=== PATIENT | male | born 1940 | race Caucasian/White ===

== ENCOUNTER → 2016-08-23 | Outpatient (REF) | payer MEDICARE ==
[2016-08-23 11:15] LABS: ALBUMIN 3.7 GM/DL (3.2-5.2); ALBUMIN/GLOBULIN RATIO 1.37 (1.00-1.93); ALKALINE PHOSPHATASE 80 U/L (45-117); ALT/SGPT 26 U/L (12-78); ANION GAP 4 MEQ/L (8-16); AST/SGOT 14 U/L (15-37); BILIRUBIN,TOTAL 0.7 MG/DL (0.2-1.0); BLOOD UREA NITROGEN 11 MG/DL (7-18); CALCIUM LEVEL 8.8 MG/DL (8.8-10.2); CARBON DIOXIDE LEVEL 36 MEQ/L (21-32); CHLORIDE LEVEL 101 MEQ/L (98-107); CHOLESTEROL LEVEL 237 MG/DL (<200); GLOMERULAR FILTRATION RATE > 60.0 (>42); GLUCOSE, FASTING 103 MG/DL (83-110); POTASSIUM SERUM 4.3 MEQ/L (3.5-5.1); SODIUM LEVEL 141 MEQ/L (136-145); TOTAL PROTEIN 6.4 GM/DL (6.4-8.2); TRIGLYCERIDES LEVEL 101 MG/DL (<150)
== END ==
LOC: M SFHCPLAZ 08:15
PROVIDERS: ATTEND Internal Medicine
DX: Z00.00 Encounter for general adult medical examination without abnormal findings (principal); I10 Essential (primary) hypertension; E78.00 Pure hypercholesterolemia, unspecified

== ENCOUNTER → 2016-08-30 | Outpatient (REF) | payer MEDICARE ==
[2016-08-30 17:06] LABS: MICROSCOPIC INDICATED? MAN YES (NO)
[2016-08-30 17:17] LABS: BACTERIA, URINE NONE SEEN; HYALINE CAST, URINE NONE SEEN /lpf (0-1); MICROSCOPIC EXAM PERFORMED; RBC, URINE 0-1 /hpf (0-3); SQUAMOUS EPITHELIAL CELL URINE SMALL AMOUNT /hpf (SMALL AMT); WBC, URINE 0-1 /hpf (0-3)
== END ==
LOC: M SFHCPLAZ 16:47
PROVIDERS: ATTEND Internal Medicine
DX: R31.1 Benign essential microscopic hematuria (principal)

== ENCOUNTER → 2017-08-27 | Outpatient (REF) | payer MEDICARE ==
[2017-08-27 12:21] LABS: ESTIMATED AVERAGE GLUCOSE 111 MG/DL (60-110); HEMOGLOBIN A1c 5.5 %
[2017-08-27 12:25] LABS: ALBUMIN 3.8 GM/DL (3.2-5.2); ALBUMIN/GLOBULIN RATIO 1.58 (1.00-1.93); ALKALINE PHOSPHATASE 67 U/L (45-117); ALT/SGPT 36 U/L (12-78); ANION GAP 4 MEQ/L (8-16); AST/SGOT 20 U/L (7-37); BILIRUBIN,TOTAL 0.7 MG/DL (0.2-1.0); BLOOD UREA NITROGEN 15 MG/DL (7-18); CALCIUM LEVEL 9.2 MG/DL (8.8-10.2); CARBON DIOXIDE LEVEL 34 MEQ/L (21-32); CHLORIDE LEVEL 102 MEQ/L (98-107); CHOLESTEROL LEVEL 225 MG/DL (<200); CHOLESTEROL RISK RATIO 3.409 (<5); CREATININE FOR GFR 0.87 MG/DL (0.70-1.30); GLOMERULAR FILTRATION RATE > 60.0 (>42); GLUCOSE, FASTING 91 MG/DL (70-100); HDL CHOLESTEROL 66 MG/DL (>40); LDL CHOLESTEROL 139.2 MG/DL (<100); NON-HDL-C 159 MG/DL; POTASSIUM SERUM 4.3 MEQ/L (3.5-5.1); SODIUM LEVEL 140 MEQ/L (136-145); TOTAL PROTEIN 6.2 GM/DL (6.4-8.2); TRIGLYCERIDES LEVEL 99 MG/DL (<150)
== END ==
LOC: M SFHCPLAZ 09:17
DX: Z00.00 Encounter for general adult medical examination without abnormal findings (principal); R73.01 Impaired fasting glucose; I10 Essential (primary) hypertension; E78.00 Pure hypercholesterolemia, unspecified
CPT/HCPCS: 80053

== ENCOUNTER → 2017-09-01 | Outpatient (REF) | payer MEDICARE ==
[2017-09-01 14:05] LABS: AMORPHOUS SEDIMENT SMALL (NEGATIVE); APPEARANCE, URINE CLEAR (CLEAR); BACTERIA, URINE AUTO NEGATIVE (NEGATIVE); BILIRUBIN, URINE AUTO NEGATIVE (NEGATIVE); BLOOD, URINE BLOOD NEGATIVE (NEGATIVE); COLOR, URINE YELLOW (YELLOW); GLUCOSE, URINE (UA) AUTO NEGATIVE (NEGATIVE); KETONE, URINE AUTO NEGATIVE (NEGATIVE); LEUKOCYTE ESTERASE, URINE AUTO NEGATIVE (NEGATIVE); NITRITE, URINE AUTO NEGATIVE (NEGATIVE); PROTEIN, URINE AUTO NEGATIVE (NEGATIVE); RBC, URINE AUTO 0 /HPF (0-3); SPECIFIC GRAVITY URINE AUTO 1.009 (1.002-1.035); SQUAMOUS EPITHELIAL CELL UR AU 0 /HPF (0-6); UROBILINOGEN, URINE AUTO 0.2 mg/dL (0.0-2.0); WBC, URINE AUTO 1 /HPF (0-3)
== END ==
LOC: M SFHCPLAZ 12:54
DX: R31.9 Hematuria, unspecified (principal)
CPT/HCPCS: 81001

== ENCOUNTER → 2017-09-11 | Outpatient (REF) | payer MEDICARE ==
[2017-09-11 13:43] LABS: APPEARANCE, URINE HAZY (CLEAR); BACTERIA, URINE AUTO NEGATIVE (NEGATIVE); BILIRUBIN, URINE AUTO NEGATIVE (NEGATIVE); BLOOD, URINE BLOOD NEGATIVE (NEGATIVE); COLOR, URINE YELLOW (YELLOW); GLUCOSE, URINE (UA) AUTO NEGATIVE (NEGATIVE); KETONE, URINE AUTO NEGATIVE (NEGATIVE); LEUKOCYTE ESTERASE, URINE AUTO NEGATIVE (NEGATIVE); MUCUS, URINE SMALL (NEGATIVE); NITRITE, URINE AUTO NEGATIVE (NEGATIVE); PROTEIN, URINE AUTO NEGATIVE (NEGATIVE); RBC, URINE AUTO 1 /HPF (0-3); SPECIFIC GRAVITY URINE AUTO 1.008 (1.002-1.035); SQUAMOUS EPITHELIAL CELL UR AU 0 /HPF (0-6); UROBILINOGEN, URINE AUTO 0.2 mg/dL (0.0-2.0); WBC, URINE AUTO 0 /HPF (0-3)
== END ==
LOC: M SMT 13:06
DX: N40.0 Benign prostatic hyperplasia without lower urinary tract symptoms (principal)
CPT/HCPCS: 81001

== ENCOUNTER → 2017-10-23 | Outpatient (CLI) | payer MEDICARE | LOC: M RAD 12:05 | DX: N40.0 Benign prostatic hyperplasia without lower urinary tract symptoms (principal); R35.1 Nocturia | CPT/HCPCS: 76857 ==

== ENCOUNTER → 2017-10-24 | Outpatient (CLI) | payer MEDICARE | LOC: M PAIN 13:30 | DX: M79.604 Pain in right leg (principal); M54.16 Radiculopathy, lumbar region; I10 Essential (primary) hypertension; E78.00 Pure hypercholesterolemia, unspecified; H40.9 Unspecified glaucoma; R73.01 Impaired fasting glucose; E73.9 Lactose intolerance, unspecified; Z87.891 Personal history of nicotine dependence; Z79.82 Long term (current) use of aspirin; Z88.8 Allergy status to other drugs, medicaments and biological substances | CPT/HCPCS: G0463 ==

== ENCOUNTER → 2017-10-28 | Outpatient (CLI) | payer MEDICARE ==
[2017-10-28 18:03] LABS: ANION GAP 4 MEQ/L (8-16); BLOOD UREA NITROGEN 12 MG/DL (7-18); CALCIUM LEVEL 9.1 MG/DL (8.8-10.2); CARBON DIOXIDE LEVEL 35 MEQ/L (21-32); CHLORIDE LEVEL 100 MEQ/L (98-107); CREATININE FOR GFR 0.95 MG/DL (0.70-1.30); GLOMERULAR FILTRATION RATE > 60.0 (>42); GLUCOSE, FASTING 77 MG/DL (70-100); POTASSIUM SERUM 4.5 MEQ/L (3.5-5.1); SODIUM LEVEL 139 MEQ/L (136-145)
== END ==
LOC: M SMT 11:21
DX: R31.0 Gross hematuria (principal); N40.1 Benign prostatic hyperplasia with lower urinary tract symptoms
CPT/HCPCS: 80048

== ENCOUNTER → 2017-11-03 | Outpatient (CLI) | payer MEDICARE | LOC: M RAD 16:53 | DX: M51.16 Intervertebral disc disorders with radiculopathy, lumbar region (principal); M48.061 Spinal stenosis, lumbar region without neurogenic claudication | CPT/HCPCS: 72148 ==

== ENCOUNTER → 2017-11-07 | Outpatient (CLI) | payer MEDICARE | LOC: M PAIN 13:15 | DX: M51.17 Intervertebral disc disorders with radiculopathy, lumbosacral region (principal); I10 Essential (primary) hypertension; H40.9 Unspecified glaucoma; N40.0 Benign prostatic hyperplasia without lower urinary tract symptoms; Z79.82 Long term (current) use of aspirin; Z79.899 Other long term (current) drug therapy; Z88.8 Allergy status to other drugs, medicaments and biological substances; Z87.891 Personal history of nicotine dependence | CPT/HCPCS: G0463 ==

== ENCOUNTER → 2017-11-17 | Outpatient (CLI) | payer MEDICARE ==
[~2017-11-17] MED LIST: ISOVUE-370 76% 100ML VIAL (Q9967) As Ordered
== END ==
LOC: M RAD 12:52
DX: K57.30 Diverticulosis of large intestine without perforation or abscess without bleeding (principal); N28.1 Cyst of kidney, acquired; D18.09 Hemangioma of other sites
CPT/HCPCS: Q9967

== ENCOUNTER → 2017-11-19 | Outpatient (CLI) | payer MEDICARE ==
[~2017-11-19] MED LIST changes: -ISOVUE-370 76% 100ML VIAL (Q9967) As Ordered; +ISOVUE-M 300 61% 15ML VIAL (Q9967) As Ordered; +LIDOCAINE 1% SDV INJ 30 ML VIAL As Ordered; +diazePAM 5 MG TAB As Ordered; +methylPREDNISolone SUSP 40 MG/ML (DEPO-medrol) VIAL (J1030) As Ordered
== END ==
LOC: M PAIN 12:30
DX: G89.29 Other chronic pain (principal); M51.17 Intervertebral disc disorders with radiculopathy, lumbosacral region; I10 Essential (primary) hypertension; E78.00 Pure hypercholesterolemia, unspecified; E73.8 Other lactose intolerance; R73.01 Impaired fasting glucose; Z79.82 Long term (current) use of aspirin; Z79.899 Other long term (current) drug therapy; Z88.8 Allergy status to other drugs, medicaments and biological substances; Z87.891 Personal history of nicotine dependence
CPT/HCPCS: J1030

== ENCOUNTER → 2017-12-10 | Outpatient (CLI) | payer MEDICARE | LOC: M PAIN 10:30 | DX: M51.17 Intervertebral disc disorders with radiculopathy, lumbosacral region (principal); I10 Essential (primary) hypertension; E78.00 Pure hypercholesterolemia, unspecified; H40.9 Unspecified glaucoma; N40.0 Benign prostatic hyperplasia without lower urinary tract symptoms; Z79.82 Long term (current) use of aspirin; Z79.899 Other long term (current) drug therapy; Z87.891 Personal history of nicotine dependence; Z88.8 Allergy status to other drugs, medicaments and biological substances | CPT/HCPCS: G0463 ==

== ENCOUNTER → 2018-08-26 | Outpatient (REF) | payer MEDICARE ==
[2018-08-26 11:28] LABS: HEMATOCRIT 47.1 % (42.0-52.0); HEMOGLOBIN 15.4 g/dl (13.5-17.5); MEAN CORPUSCULAR HEMOGLOBIN 30.7 pg (27.0-33.0); MEAN CORPUSCULAR HGB CONC 32.7 g/dl (32.0-36.5); MEAN CORPUSCULAR VOLUME 93.8 fl (80.0-96.0); PLATELET COUNT, AUTOMATED 155 10^3/uL (150-450); RED BLOOD COUNT 5.02 10^6/uL (4.30-6.10); WHITE BLOOD COUNT 4.2 10^3/uL (4.0-10.0)
[2018-08-26 12:05] LABS: ALBUMIN 3.4 GM/DL (3.2-5.2); ALT/SGPT 25 U/L (12-78); BILIRUBIN,TOTAL 0.6 MG/DL (0.2-1.0); BLOOD UREA NITROGEN 11 MG/DL (7-18); CALCIUM LEVEL 8.8 MG/DL (8.8-10.2); CARBON DIOXIDE LEVEL 35 MEQ/L (21-32); CHLORIDE LEVEL 103 MEQ/L (98-107); CHOLESTEROL LEVEL 239 MG/DL (<200); CHOLESTEROL RISK RATIO 3.273 (<5); CREATININE FOR GFR 0.88 MG/DL (0.70-1.30); GLOMERULAR FILTRATION RATE > 60.0 (>42); GLUCOSE, FASTING 98 MG/DL (70-100); HDL CHOLESTEROL 73 MG/DL (>40); LDL CHOLESTEROL 150 MG/DL (<100); MAGNESIUM LEVEL 2.1 MG/DL (1.8-2.4); NON-HDL-C 166 MG/DL; POTASSIUM SERUM 4.2 MEQ/L (3.5-5.1); SODIUM LEVEL 141 MEQ/L (136-145); TOTAL PROTEIN 6.2 GM/DL (6.4-8.2); TRIGLYCERIDES LEVEL 80 MG/DL (<150)
== END ==
LOC: M SFHCPLAZ 09:03
PROVIDERS: ATTEND Internal Medicine
DX: Z00.00 Encounter for general adult medical examination without abnormal findings (principal); G25.81 Restless legs syndrome; I10 Essential (primary) hypertension; E78.00 Pure hypercholesterolemia, unspecified

== ENCOUNTER → 2018-12-23 | Outpatient (CLI) | payer MEDICARE | LOC: M LAB 12:20 | PROVIDERS: ATTEND Urology | DX: Z12.5 Encounter for screening for malignant neoplasm of prostate (principal) | CPT/HCPCS: 36415; G0103; G0463 ==

== ENCOUNTER → 2018-12-30 | Outpatient (CLI) | payer MEDICARE ==
--- NOTE | 2018-12-31 02:50 | REP ---
URINARY BLADDER ULTRASOUND: Real-time sonographic evaluation of urinary bladder performed. Bladder measures 6.7 x 7.4 x 7.6 cm for a total volume of 246 mL. Ureteral jets are not seen with Doppler color evaluation. Prostate is enlarged with a nodular contour. The prostate measures 6.8 x 4.6 x 4.9 cm for a total volume of 80 mL. After voiding, postvoid residual is 57 mL, which 23% of the original volume. Electronically Signed by Mario Clark MD 01/01/2019 09:11 A
== END ==
LOC: M RAD 12:01
PROVIDERS: ATTEND Urology
DX: N40.1 Benign prostatic hyperplasia with lower urinary tract symptoms (principal); N13.9 Obstructive and reflux uropathy, unspecified

== ENCOUNTER → 2019-01-02 | Outpatient (CLI) | payer MEDICARE ==
--- NOTE | 2019-01-03 10:48 | REP ---
REASON: Pain after trauma. There is a fracture of the mid diaphysis of the distal phalanx of the 1st digit with associated soft tissue swelling. Electronically Signed by Nemesio Simon DO 01/03/2019 10:57 A
== END ==
LOC: M WUC 14:16
PROVIDERS: ATTEND Physician Assistant
DX: M79.675 Pain in left toe(s) (principal)

== ENCOUNTER 2019-06-29 19:25 | Emergency (ER) | payer MEDICARE ==
[~2019-06-29] VITALS: Ht 172.7 cm; Wt 93.2 kg
[2019-06-29] MEDS ORDERED: BRIM1OPD OP (19:46)
[2019-06-29] MEDS ORDERED: VALS80TA PO (19:46)
[2019-06-29] MEDS ORDERED: [UNRECOGNIZED DRUG - CODE] XX (19:46)
[2019-06-29] MEDS ORDERED: MAGN400C PO (19:46)
[2019-06-29] MEDS ORDERED: SILO8CAP PO (19:46)
[2019-06-29] MEDS ORDERED: ASPI81CH33 PO (19:46)
[2019-06-29] MEDS ORDERED: FLUT1LOT (19:46)
[2019-06-29] MEDS ORDERED: FLUT15.820 NARES (19:46)
[2019-06-29 19:55] LABS: BASO % 0.3 % (0.0-1.0); EOS % 0.6 % (0.0-3.0); HEMATOCRIT 44.8 % (42.0-52.0); HEMOGLOBIN 15.3 g/dl (13.5-17.5); LYMPH # 1.1 10^3/uL (1.5-5.0); LYMPH % 17.8 % (24.0-44.0); MEAN CORPUSCULAR HEMOGLOBIN 30.7 pg (27.0-33.0); MEAN CORPUSCULAR HGB CONC 34.2 g/dl (32.0-36.5); MEAN CORPUSCULAR VOLUME 89.8 fl (80.0-96.0); MONO # 0.3 10^3/uL (0.0-0.8); MONO % 5.1 % (0.0-5.0); NEUTROPHILS # 4.8 10^3/uL (1.5-8.5); NEUTROPHILS % 75.9 % (36.0-66.0); PLATELET COUNT, AUTOMATED 157 10^3/uL (150-450); RED BLOOD COUNT 4.99 10^6/uL (4.30-6.10); WHITE BLOOD COUNT 6.3 10^3/uL (4.0-10.0)
[2019-06-29 20:25] LABS: BLOOD UREA NITROGEN 14 MG/DL (7-18); CALCIUM LEVEL 9.1 MG/DL (8.8-10.2); CARBON DIOXIDE LEVEL 32 MEQ/L (21-32); CHLORIDE LEVEL 101 MEQ/L (98-107); CK-MB VALUE MASS 2.4 NG/ML (<3.6); CPK CREATINE PHOSPHOKINASE 143 U/L (39-308); CREATININE FOR GFR 0.97 MG/DL (0.70-1.30); GLOMERULAR FILTRATION RATE > 60.0 (>42); GLUCOSE, FASTING 197 MG/DL (70-100); MAGNESIUM LEVEL 2.1 MG/DL (1.8-2.4); MB/CK RELATIVE INDEX 1.68 (< OR =4); NT-PRO BNP 166 PG/ML (<450); POTASSIUM SERUM 3.5 MEQ/L (3.5-5.1); SODIUM LEVEL 136 MEQ/L (136-145); TROPONIN I < 0.02 NG/ML (< 0.10)
[2019-06-29] MEDS ORDERED: SPIRONOLACTONE 12.5MG PER 1/2 TABLET PO STA (21:29)
[2019-06-29] MEDS ORDERED: APIXABAN 5 MG TAB (ELIQUIS) PO ONE (21:30)
[2019-06-29] MEDS ORDERED: ELIQ5TAB PO (21:34)
[2019-06-29] MEDS ORDERED: SPIR-10 PO (21:34)
[2019-06-29 21:45] VITALS: BP 126/67
--- NOTE | 2019-06-30 08:15 | REP ---
REASON: Chest pain. COMPARISON: 01/10/2010 FINDINGS: The technique utilized in obtaining the radiograph has magnified the cardiac silhouette and accentuated the interstitial markings. The superior mediastinal structures are midline. The cardiac silhouette is unremarkable in size, shape, and position. The diaphragmatic surfaces of the lungs are regular, and the costophrenic angles are clear. The pulmonary rasmussen are clear. The imaged osseous structures are intact. IMPRESSION: There is no acute cardiopulmonary disease. No significant change from the prior exam other than technique. Electronically Signed by Nemesio Simon DO 06/30/2019 08:44 A
--- NOTE | 2019-06-30 10:39 | ECGEPIP ---
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
--- NOTE | 2019-06-30 10:39 | ECGEPIP ---
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
== END 2019-06-29 22:11 | disposition home or self-care (01) ==
LOC: M ED 19:25
DX: I48.0 Paroxysmal atrial fibrillation (principal); I10 Essential (primary) hypertension; E78.5 Hyperlipidemia, unspecified; Z79.01 Long term (current) use of anticoagulants; Z79.899 Other long term (current) drug therapy

== ENCOUNTER → 2019-08-25 | Outpatient (REF) | payer MEDICARE ==
[~2019-08-25] MED LIST changes: +ASPI81CH33 PO; +BRIM1OPD OP; +ELIQ5TAB PO; +FLUT15.820 NARES; +FLUT1LOT; -ISOVUE-M 300 61% 15ML VIAL (Q9967) As Ordered; -LIDOCAINE 1% SDV INJ 30 ML VIAL As Ordered; +MAGN400C PO; +SILO8CAP PO; +SPIR-10 PO; +VALS80TA PO; +[UNRECOGNIZED DRUG - CODE] XX; -diazePAM 5 MG TAB As Ordered; -methylPREDNISolone SUSP 40 MG/ML (DEPO-medrol) VIAL (J1030) As Ordered
[2019-08-25 11:29] LABS: HEMATOCRIT 46.4 % (42.0-52.0); HEMOGLOBIN 15.2 g/dl (13.5-17.5); MEAN CORPUSCULAR HEMOGLOBIN 30.4 pg (27.0-33.0); MEAN CORPUSCULAR HGB CONC 32.8 g/dl (32.0-36.5); MEAN CORPUSCULAR VOLUME 92.8 fl (80.0-96.0); PLATELET COUNT, AUTOMATED 167 10^3/uL (150-450)
[2019-08-25 11:40] LABS: ALBUMIN 3.6 GM/DL (3.2-5.2); ALT/SGPT 24 U/L (12-78); BILIRUBIN,TOTAL 0.9 MG/DL (0.2-1.0); BLOOD UREA NITROGEN 14 MG/DL (7-18); CALCIUM LEVEL 8.9 MG/DL (8.8-10.2); CARBON DIOXIDE LEVEL 33 MEQ/L (21-32); CHLORIDE LEVEL 104 MEQ/L (98-107); CHOLESTEROL LEVEL 238 MG/DL (<200); CHOLESTEROL RISK RATIO 3.305 (<5); CREATININE FOR GFR 0.93 MG/DL (0.70-1.30); GLOMERULAR FILTRATION RATE > 60.0 (>42); GLUCOSE, FASTING 96 MG/DL (70-100); HDL CHOLESTEROL 72 MG/DL (>40); LDL CHOLESTEROL 148 MG/DL (<100); MAGNESIUM LEVEL 2.1 MG/DL (1.8-2.4); NON-HDL-C 166 MG/DL; POTASSIUM SERUM 4.5 MEQ/L (3.5-5.1); SODIUM LEVEL 141 MEQ/L (136-145); TOTAL PROTEIN 6.2 GM/DL (6.4-8.2); TRIGLYCERIDES LEVEL 90 MG/DL (<150)
== END ==
LOC: M PLALAB 09:06
PROVIDERS: ATTEND Internal Medicine
DX: R31.1 Benign essential microscopic hematuria (principal); I10 Essential (primary) hypertension; E78.00 Pure hypercholesterolemia, unspecified; R00.1 Bradycardia, unspecified

== ENCOUNTER → 2019-12-21 | Outpatient (CLI) | payer MEDICARE ==
[~2019-12-21] MED LIST changes: +DUTA1CAP2 PO; +VALS1TAB66 PO
[2019-12-21 17:15] LABS: BASO % 0.4 % (0.0-1.0); EOS # 0.1 10^3/uL (0.0-0.5); EOS % 1.1 % (0.0-3.0); HEMATOCRIT 46.7 % (42.0-52.0); HEMOGLOBIN 15.3 g/dl (13.5-17.5); LYMPH # 1.1 10^3/uL (1.5-5.0); LYMPH % 23.5 % (24.0-44.0); MEAN CORPUSCULAR HEMOGLOBIN 30.7 pg (27.0-33.0); MEAN CORPUSCULAR HGB CONC 32.8 g/dl (32.0-36.5); MEAN CORPUSCULAR VOLUME 93.6 fl (80.0-96.0); MONO # 0.5 10^3/uL (0.0-0.8); MONO % 11.3 % (0.0-5.0); NEUTROPHILS % 63.3 % (36.0-66.0); PLATELET COUNT, AUTOMATED 172 10^3/uL (150-450); RED BLOOD COUNT 4.99 10^6/uL (4.30-6.10); WHITE BLOOD COUNT 4.7 10^3/uL (4.0-10.0)
[2019-12-21 18:09] LABS: ERYTHROCYTE SEDIMENTATION RATE 1 mm/hr (0-20)
[2019-12-21 19:28] LABS: BLOOD UREA NITROGEN 14 MG/DL (7-18); CALCIUM LEVEL 9.5 MG/DL (8.8-10.2); CARBON DIOXIDE LEVEL 31 MEQ/L (21-32); CHLORIDE LEVEL 100 MEQ/L (98-107); CREATININE FOR GFR 0.86 MG/DL (0.70-1.30); GLOMERULAR FILTRATION RATE > 60.0 (>42); GLUCOSE, FASTING 62 MG/DL (70-100); MAGNESIUM LEVEL 2.2 MG/DL (1.8-2.4); POTASSIUM SERUM 4.8 MEQ/L (3.5-5.1); SODIUM LEVEL 136 MEQ/L (136-145)
== END ==
LOC: M PLALAB 15:16
PROVIDERS: ATTEND Internal Medicine
DX: R25.3 Fasciculation (principal)

== ENCOUNTER 2020-01-18 16:16 | Emergency (ER) | payer MEDICARE ==
[~2020-01-18] VITALS: Ht 172.7 cm; Wt 93.6 kg
[~2020-01-18 16:16] MED LIST changes: -DUTA1CAP2 PO; -VALS1TAB66 PO
[2020-01-18 16:43] LABS: BASO % 0.6 % (0.0-1.0); EOS % 0.6 % (0.0-3.0); HEMATOCRIT 47.1 % (42.0-52.0); HEMOGLOBIN 15.4 g/dl (13.5-17.5); LYMPH % 20.1 % (24.0-44.0); MEAN CORPUSCULAR HEMOGLOBIN 30.2 pg (27.0-33.0); MEAN CORPUSCULAR HGB CONC 32.7 g/dl (32.0-36.5); MEAN CORPUSCULAR VOLUME 92.4 fl (80.0-96.0); MONO # 0.4 10^3/uL (0.0-0.8); MONO % 7.9 % (0.0-5.0); NEUTROPHILS # 3.7 10^3/uL (1.5-8.5); NEUTROPHILS % 70.6 % (36.0-66.0); PLATELET COUNT, AUTOMATED 172 10^3/uL (150-450); WHITE BLOOD COUNT 5.2 10^3/uL (4.0-10.0)
--- NOTE | 2020-01-18 16:48 | REP ---
INDICATION: CHEST PAIN. COMPARISON: Comparison portable chest x-ray June 29, 2019.. TECHNIQUE: Upright AP view. FINDINGS: Monitoring electrodes are seen. A left shoulder arthroplasty is noted in place. Mild cardiomegaly is again observed unchanged. The aorta is somewhat tortuous. The lungs are symmetrically aerated and free of infiltrate. Pleural angles are sharp. There is no evidence of pleural effusion or pulmonary edema. IMPRESSION: Mild cardiomegaly. Left shoulder arthroplasty. Otherwise no acute disease. <Electronically signed by Darshan Garvin > 01/18/20 0942
[2020-01-18 17:15] LABS: ALBUMIN 3.8 GM/DL (3.2-5.2); ALT/SGPT 19 U/L (12-78); BILIRUBIN,DIRECT 0.2 MG/DL (0.0-0.2); BILIRUBIN,TOTAL 0.5 MG/DL (0.2-1.0); BLOOD UREA NITROGEN 11 MG/DL (7-18); CALCIUM LEVEL 9.2 MG/DL (8.8-10.2); CARBON DIOXIDE LEVEL 31 MEQ/L (21-32); CHLORIDE LEVEL 102 MEQ/L (98-107); CK-MB VALUE MASS 2.4 NG/ML (<3.6); CPK CREATINE PHOSPHOKINASE 109 U/L (39-308); CREATININE FOR GFR 0.99 MG/DL (0.70-1.30); GLOMERULAR FILTRATION RATE > 60.0 (>42); GLUCOSE, FASTING 100 MG/DL (70-100); LIPASE 43 U/L (73-393); POTASSIUM SERUM 4.4 MEQ/L (3.5-5.1); SODIUM LEVEL 138 MEQ/L (136-145); TOTAL PROTEIN 6.4 GM/DL (6.4-8.2); TROPONIN I < 0.02 NG/ML (< 0.10)
[2020-01-18] MEDS ORDERED: ASPI81CH33 PO (17:46)
[2020-01-18] MEDS ORDERED: DUTA1CAP2 PO (17:46)
[2020-01-18] MEDS ORDERED: VALS1TAB66 PO (17:46)
--- NOTE | 2020-01-18 18:46 | ECGEPIP ---
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
[2020-01-18 23:29] VITALS: BP 140/80
--- NOTE | 2020-01-20 22:54 | ECGEPIP ---
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 Electronically Signed on 01-20-2020 22:54:04 EDT by Jamari Joy
== END 2020-01-18 23:52 | disposition home or self-care (01) ==
LOC: EDBD 16:16 → M ED 16:16
DX: R55 Syncope and collapse (principal); R00.1 Bradycardia, unspecified; I51.7 Cardiomegaly; Z79.82 Long term (current) use of aspirin; Z79.899 Other long term (current) drug therapy

== ENCOUNTER → 2020-04-13 | Outpatient (CLI) | payer SELFPAY ==
[~2020-04-13] MED LIST changes: +DUTA1CAP2 PO; +VALS1TAB66 PO
== END ==
LOC: M LABSMTC 13:22
PROVIDERS: ATTEND Pediatrics
DX: Z20.822 Contact with and (suspected) exposure to COVID-19 (principal)

== ENCOUNTER → 2020-06-02 | Outpatient (CLI) | payer MEDICARE ==
[2020-06-02 16:04] LABS: HEMOGLOBIN A1c 5.5 %
== END ==
LOC: M PLALAB 14:40
PROVIDERS: ATTEND Ophthalmology
DX: G45.3 Amaurosis fugax (principal); Z79.899 Other long term (current) drug therapy

== ENCOUNTER → 2020-06-14 | Outpatient (CLI) | payer MEDICARE ==
--- NOTE | 2020-06-16 00:04 | ECWPNPC ---
PATIENT NAME: PATRICE FAN : 1940 GENDER: MALE VISIT DATE: 06/14/2020 DISCHARGE DATE: 06/14/20935 VISIT LOCKED DATE TIME: PHYSICIAN: ELIZABETH MCCOY PHYSICIAN PAGER NO: ACTIVE RESOURCE: ELIZABETH MCCOY REASON FOR APPOINTMENT 1. SCIATIC PAIN HISTORY OF PRESENT ILLNESS DEPRESSION SCREENING: PHQ-2 (2015 EDITION) LITTLE INTEREST OR PLEASURE IN DOING THINGS?NOT AT ALL FEELING DOWN, DEPRESSED, OR HOPELESS?NOT AT ALL TOTAL SCORE0 PAIN CENTER INTAKE QUESTIONS: DO YOU HAVE A HISTORY OF MRSA? :NO DO YOU TAKE A BLOOD THINNERS? :NO DO YOU HAVE ANY BLEEDING DISORDERS? :NO ANY NEW NUMBNESS OR WEAKNESS IN YOUR LEGS OR ARMS? :NO ANY PACEMAKER,DEFIBRILLATOR, OR DORSAL COLUMN STIMULATOR? :NO DO YOU HAVE ANY RASHES OR OPEN SORES? :NO ARE YOU ALLERGIC TO IV DYE? :NO ARE YOU DIABETIC? :NO ANY NEW PROBLEMS WITH YOUR MEDICATIONS? :NO HAVE YOU RECEIVED A VACCINE IN THE PAST 30 DAYS? :YES IF SO WHAT VACCINE AND WHEN? COVID VACCINE #2 05/13/20 DO YOU PLAN TO RECEIVE A VACCINE IN THE NEXT 21 DAYS? :NO DO YOU NEED ANY PRESCRIPTION? :NO DO YOU TAKE ANY IMMUNOSUPPRESSIVE MEDICATIONS? :NO DO YOU HAVE ANY KIDNEY OR LIVER DISEASE? :NO IS THERE A CHANCE YOU COULD BE ? :NO ARE YOU BREAST FEEDING? :NO GENERAL: 79-YEAR-OLD GENTLEMAN HERE FOR EVALUATION OF LOW BACK PAIN WITH RIGHT LEG RADICULAR SYMPTOMS. HE WAS A PATIENT HERE IN 2018 AND RECEIVED LUMBAR EPIDURAL STEROID INJECTION WITH RESOLUTION OF RIGHT CALF PAIN AND LEG PAIN POST PROCEDURE. PAIN REOCCURRED THIS PAST APRIL AFTER SHOVELING SNOW. PAIN IS IN THE USUAL LOCATION WITH CHIEF COMPLAINT BEING RIGHT CALF PAIN. CURRENTLY BEING EVALUATED FOR SLEEP APNEA AND FOLLOWS WITH CARDIOLOGY WITH EXTENSIVE WORKUP OVER THE PAST YEAR FOR ATRIAL FIBRILLATION/PALPITATIONS. HE DOES TELL ME THAT DURING HIS PROCEDURE CARE A FEW YEARS AGO HE DID HAVE LOW BLOOD PRESSURE AND REQUIRED FLUIDS. REPORTING NO CHANGES IN BOWEL OR BLADDER FUNCTION. NO RECENT FEVER OR ILLNESS.- - -. FALL RISK SCREENING: SCREENING : NO FALLS REPORTED IN THE LAST YEAR , : NO FALLS REPORTED IN THE LAST YEAR. PAIN SCREENING: PATIENT HAS A COMPLAINT OF ACUTE OR CHRONIC PAIN :YES LOCATION OF PAIN:LEG(S) INTENSITY OF PAIN (SCALE OF 1 TO 10):2 WHAT DOES YOUR PAIN FEEL LIKE:SHOOTING DURATION:INTERMITTENT PAIN IS INCREASED BY:ACTIVITIES PAIN IS DECREASED BY: REPOSITIONING NURSING NOTE: - - -. CURRENT MEDICATIONS TAKING ASPIRIN 81 MG TABLET 1 TABLET ORALLY ONCE A DAY TAKING MAGNESIUM 400 MG TABLET 1 TAB ORALLY ONCE DAILY TAKING ACETAMINOPHEN 325 MG TABLET 1 TABLET NEEDED ORALLY EVERY 4 HRS TAKING MOMETASONE FUROATE 0.1 % LOTION 1 TO AFFECTED AREA EXTERNALLY TO EARS DAILY NEEDED TAKING TRAZODONE HCL 50 MG TABLET 1/2-1 TABLET AT BEDTIME ORALLY ONCE A DAY AT HS NEEDED FOR SLEEP TAKING VALSARTAN 80 MG TABLET 1 TABLET ORALLY ONCE A DAY TAKING SPIRONOLACTONE 25 MG TABLET 1/2 TABLET ORALLY ONCE A DAY TAKING RAPAFLO 8 MG CAPSULE 1 CAPSULE WITH A MEAL ORALLY ONCE A DAY TAKING AVODART 0.5 MG CAPSULE 1 CAPSULE ORALLY ONCE A DAY TAKING FLONASE 50 MCG/ACT SUSPENSION 2 SPRAYS IN EACH NOSTRIL NASALLY DAILY NEEDED NOT-TAKING ALPHAGAN P 0.1 % SOLUTION 1 DROP INTO BOTH EYES OPHTHALMIC TWICE A DAY NOT-TAKING VYZULTA 0.024 % SOLUTION 1 DROP INTO AFFECTED EYE IN THE EVENING OPHTHALMIC ONCE A DAY NOT-TAKING SUPER B COMPLEX NOT-TAKING SYSTANE 0.4-0.3 % SOLUTION 1 DROP INTO AFFECTED EYE NEEDED OPHTHALMIC 24 TIME(S) A DAY NOT-TAKING IBUPROFEN 200 MG TABLET 1 TABLET ORALLY DAILY NEEDED MEDICATION LIST REVIEWED AND RECONCILED WITH THE PATIENT PAST MEDICAL HISTORY ESSENTIAL (PRIMARY) HYPERTENSION HYPERCHOLESTEROLEMIA 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, UNSPECIFIED BRADYCARDIA, 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 UNSPECIFIED GLAUCOMA RESTLESS LEGS SYNDROME ESSENTIAL (PRIMARY) HYPERTENSION HYPERCHOLESTEROLEMIA OBSTRUCTIVE AND REFLUX UROPATHY, UNSPECIFIED IMPAIRED FASTING GLUCOSE BRADYCARDIA, 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 UNSPECIFIED GLAUCOMA RESTLESS LEGS SYNDROME HEMATURIA, UNSPECIFIED TYPE BENIGN PROSTATIC HYPERPLASIA WITHOUT LOWER URINARY TRACT SYMPTOMS ALLERGIES LISINOPRIL: COUGH - SIDE EFFECTS SURGICAL HISTORY COLONOSCOPY AND EGD 08/2008 LEFT REVERSE SHOULDER ARTHROPLASTY AFTER A HUMEROUS FRACTURE 01/2010 CYSTOSCOPY WITH UROFLOW 10/28/2017 CYSTOSCOPY 01/11/2019 BILAT EYE STENTS 11/2019 FAMILY HISTORY FATHER: MOTHER: 2 BROTHER(S) , 1 SISTER(S) . 2 SON(S) , 1 DAUGHTER(S) - HEALTHY. FATHER OF CHF AND CAD AT AGE 80. MOTHER HAS CHF. A BROTHER HAS ANGINA, ANOTHER IS HEALTHY. TWO CHILDREN ARE WELL; A DAUGHTER HAS BREAST CANCER DIAGNOSED IN HER 40S. SOCIAL HISTORY GENERAL: TOBACCO USE ARE YOU A:FORMER SMOKER HOW LONG HAS IT BEEN SINCE YOU LAST SMOKED?> 10 YEARS LATEX QUESTIONNAIRE LATEX ALLERGY : HAVE YOU EVER DEVELOPED ANY TYPE OF REACTION AFTER HANDLING LATEX PRODUCTS SUCH RUBBER GLOVES, CONDOMS, DIAPHRAGMS, BALLOONS, SOCKS, OR UNDERWEAR?NO LATEX ALLERGY : HAVE YOU EVER DEVELOPED ANY TYPE OF REACTION DURING OR AFTER DENTAL APPOINTMENT, VAGINAL/RECTAL EXAMINATION, SURGICAL PROCEDURE, OR ANY OTHER EXPOSURE?NO LATEX RISK : HAVE YOU EVER HAD ANY DIFFICULTY BREATHING OR HIVES AFTER EATING OR HANDLING ANY FRUITS, OR VEGETABLES; SUCH KIWI, BANANAS, STONE FRUITS, OR CHESTNUTSNO LATEX RISK : DO YOU HAVE A PREVIOUS PERSONAL HISTORY OF MORE THAN NINE SURGERIES, SPINA BIFIDA, OR REPEATED CATHERIZATIONS? NO LATEX RISK : ARE YOU FREQUENTLY EXPOSED TO LATEX PRODUCTS IN YOUR OCCUPATION?NO DATE ASKED : 09/01/2019 BMI CARE GOAL FOLLOW-UP ABOVE NORMAL BMI FOLLOW-UPGIVING ENCOURAGEMENT TO EXERCISE ALCOHOL SCREENING DID YOU HAVE A DRINK CONTAINING ALCOHOL IN THE PAST YEAR?YES HOW OFTEN DID YOU HAVE A DRINK CONTAINING ALCOHOL IN THE PAST YEAR?MONTHLY OR LESS (1 POINT) HOW MANY DRINKS DID YOU HAVE ON A TYPICAL DAY WHEN YOU WERE DRINKING IN THE PAST YEAR?1 OR 2 (0 POINTS) POINTS1 INTERPRETATIONNEGATIVE RECREATIONAL DRUG USE DRUG USE?NO CAFFEINE CAFFEINE USE?YES HOW OFTEN AND HOW MUCH? 2 CUPS COFFEE DAILY SEXUAL HX HAD SEX IN THE LAST 12 MONTHS (VAGINAL, ORAL, OR ANAL)?NO HAVE YOU EVER HAD AN STD?NO HIV / HEP-C SCREENING HIV TEST OFFERED TO PATIENT:YES DATE OFFERED:09/01/2017 TEST ACCEPTED:NO HEP-C TEST OFFERED TO PATIENT:YES DATE OFFERED:09/01/2017 REASON:PATIENT DECLINED TEST ACCEPTED:NO REASON:PATIENT DECLINED BROCHURE PROVIDED TO PATIENTYES MUSLIM NO LATTER-DAY BELIEFS THAT WOULD IMPACT HEALTH CARE. LANGUAGE [place]EN[place]. 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 DIET: REGULAR. EXERCISE: NO REGULAR EXERCISE. MARITAL STATUS: . - HAS THE PATIENT BEEN EDUCATED REGARDING HIS/HER PLAN OF CARE?YES HAS THE PATIENT BEEN EDUCATED REGARDING PAIN, THE RISK FOR PAIN, THE IMPORTANCE OF EFFECTIVE PAIN MANAGEMENT, AND THE PAIN ASSESSMENT PROCESS?YES HOUSING: OWNS HOME. ADVANCE DIRECTIVE ADVANCE DIRECTIVE DISCUSSED WITH PATIENT:YES PT HAS ADVANCED DIRECTIVES, STATES THEY WERE SCANNED IN REVIEWED WITH PT 11/07/17 1330 LAS. HOSPITALIZATION/MAJOR DIAGNOSTIC PROCEDURE BROKEN SHOULDER 2009 [facility] ED-LOW HEART RATE 01/18/2020 REVIEW OF SYSTEMS CONSTITUTIONAL: ANY RECENT FEVER NO . CHILLS NO . WEIGHT CHANGE OF UNKNOWN REASONS NO . GASTROENTEROLOGY: NEW UNEXPLAINABLE CHANGES IN BOWEL CONTROL NO . CONSTIPATION NO . GENITOURINARY: ANY NEW CHANGE IN BLADDER CONTROL? NO . NEUROLOGY: NEW ONSET DIZZINESS OR NEUROLOGICAL CHANGES NOT MENTIONED NO . NEW NUMBNESS OR PAIN PATTERNS NOT MENTIONED AND PERTINENT TO TODAY'S VISIT NO . CARDIOLOGY: NEW CHEST PRESSURE NO . PATIENT DENIES NO . RESPIRATORY: UNEXPLAINABLE COUGH NO . NEW SHORTNESS OF BREATH NO . VITAL SIGNS WT 200.4 LBS, HT 68.5 IN, BMI 30.02 INDEX, BP 162/77 MM HG, HR 65 /MIN, RR 18 /MIN, TEMP 97.3 F, OXYGEN SAT % 98%, SAFE IN ENV? (Y/N) Y, NA INITIALS OH 08:29, REVIEWED BY: EM. EXAMINATION GENERAL EXAMINATION: GENERAL AWAKE,ALERT ,PLEASANT . PSYCH AFFECT NORMAL . LUNGS: LUNG LALA ARE CLEAR TO AUSCULTATION BILATERALLY. GOOD MOVEMENT OF AIR . HEART: S1, S2 IN A REGULAR RATE AND RHYTHM. NO SIGNIFICANT MURMURS, RUBS OR GALLOPS NOTED . LUMBAR: PALPATION: NEGATIVE FOR PAIN OVER L/S SPINE. NEGATIVE FOR PAIN OVER L/S PARASPINALS. MODIFIED STRAIGHT LEG EXAM WITH SLIGHT INCREASE IN LOW BACK PAIN NOTED AT 45 . ASSESSMENTS INTERVERTEBRAL DISC DISORDER WITH RADICULOPATHY OF LUMBOSACRAL REGION - M51.17 (PRIMARY) TREATMENT INTERVERTEBRAL DISC DISORDER WITH RADICULOPATHY OF LUMBOSACRAL REGION IV LACTATED RINGER'S WIDE OPEN (ORDERED FOR 06/21/2020) NOTES: LUMBAR EPIDURAL STEROID INJECTION PRE PROCEDURE INFORMATION SHEET PRINTED, REVIEWED AND GIVEN TO PT. EM. OTHERS NOTES: LUMBAR EPIDURAL STEROID INJECTION. PROCEDURE CODES FA211 ESTABILISHED PATIENT [facility] CHARGE DISPOSITION & COMMUNICATION FOLLOW UP POST PROCEDURE (REASON: LUMBAR EPIDURAL STEROID INJECTION/MED CLEARANCE HOLD) ELECTRONICALLY SIGNED BY IVETTE MCKEON ON 06/15/2020 AT 02:26 PM EDT DISCLAIMER : THIS IS A VISIT SUMMARY EXTRACTED FROM THE [employer] CHART. IT IS NOT A COPY OF THE [employer] PROGRESS NOTE. LACYD
== END ==
LOC: M PAIN 08:30
PROVIDERS: ATTEND Nurse Practitioner Family
DX: M51.17 Intervertebral disc disorders with radiculopathy, lumbosacral region (principal); R73.01 Impaired fasting glucose; G25.81 Restless legs syndrome; Z87.891 Personal history of nicotine dependence; Z88.8 Allergy status to other drugs, medicaments and biological substances; Z79.82 Long term (current) use of aspirin; Z79.899 Other long term (current) drug therapy

== ENCOUNTER → 2020-07-08 | Outpatient (CLI) | payer MEDICARE | LOC: M LABSMTC 11:07 | PROVIDERS: ATTEND Anesthesiology | DX: Z20.828 Contact with and (suspected) exposure to other viral communicable diseases (principal); Z11.59 Encounter for screening for other viral diseases ==

== ENCOUNTER → 2020-07-13 | Outpatient (CLI) | payer MEDICARE ==
[~2020-07-13] MED LIST changes: +ISOVUE-M 300 61% 15ML VIAL As Ordered ONE; +LIDOCAINE 1% SDV 30ML VIAL As Ordered ONE; +methylPREDNISolone SUSP 40MG/ML 1ML VIAL (DEPO MEDROL) As Ordered ONE
--- NOTE | 2020-07-14 | ECWPNPC ---
PATIENT NAME: PATRICE FAN : 1940 GENDER: MALE VISIT DATE: 07/13/2020 DISCHARGE DATE: 07/13/20 1010 VISIT LOCKED DATE TIME: PHYSICIAN: MINDA STUART MD PHYSICIAN PAGER NO: ACTIVE RESOURCE: MINDA STUART MD REASON FOR APPOINTMENT 1. FOLLOW UP HISTORY OF PRESENT ILLNESS GENERAL: 79-YEAR-OLD MALE PATIENT WITH A HISTORY OF CHRONIC LOW BACK AND MAINLY RIGHT LEG PAIN. THE PATIENT DESCRIBES THE PAIN SHARP, SHOOTING WITH A PAIN SCORE RANGING FROM 3-7/10. HE RECEIVED AN EPIDURAL IN THE PAST WHICH GAVE HIM ALMOST 2 YEARS. THE PAIN HAS STARTED TO COME BACK AND HE IS INTERESTED IN HAVING AN EPIDURAL INJECTION AGAIN. THIS PAIN IS AFFECTING HIS ABILITY TO DO ACTIVITIES SUCH CLEANING HIS HOUSE, MOVING AROUND AND TAKING CARE OF HIS . THE PATIENT IS INTERESTED IN MOVING FORWARD WITH AN EPIDURAL. FALL RISK SCREENING: SCREENING : NO FALLS REPORTED IN THE LAST YEAR. PAIN SCREENING: PATIENT HAS A COMPLAINT OF ACUTE OR CHRONIC PAIN :YES LOCATION OF PAIN:LOW BACK, LEG(S) INTENSITY OF PAIN (SCALE OF 1 TO 10):3 WHAT DOES YOUR PAIN FEEL LIKE:SHARP, THROBBING DURATION:INTERMITTENT PAIN IS INCREASED BY: SITTING, LYING IN BED PAIN IS DECREASED BY: CHANGING POSITIONS NURSING NOTE: -. PAIN CENTER INTAKE QUESTIONS: DO YOU HAVE A HISTORY OF MRSA? :NO DO YOU TAKE A BLOOD THINNERS? :NO DO YOU HAVE ANY BLEEDING DISORDERS? :NO ANY NEW NUMBNESS OR WEAKNESS IN YOUR LEGS OR ARMS? :NO ANY PACEMAKER,DEFIBRILLATOR, OR DORSAL COLUMN STIMULATOR? :NO DO YOU HAVE ANY RASHES OR OPEN SORES? :NO ARE YOU ALLERGIC TO IV DYE? :NO ARE YOU DIABETIC? :NO ANY NEW PROBLEMS WITH YOUR MEDICATIONS? :NO HAVE YOU RECEIVED A VACCINE IN THE PAST 30 DAYS? :NO DO YOU PLAN TO RECEIVE A VACCINE IN THE NEXT 21 DAYS? :NO DO YOU NEED ANY PRESCRIPTION? :NO DO YOU TAKE ANY IMMUNOSUPPRESSIVE MEDICATIONS? :NO ANY HISTORY OF SEIZURES? :NO ANY HISTORY OF CARDIAC ISSUES OR EVENTS? :YES SEEING CORPORATE QUALITY MANAGER FOR RAPID HEART BEATS DO YOU HAVE ANY KIDNEY OR LIVER DISEASE? :NO DO YOU HAVE SLEEP APNEA? :NO WENT FOR SLEEP STUDY 2 WEEKS AGO, NOT SURE OF RESULTS ANY RECENT HEAD INJURY? :NO DO YOU HAVE ANY NEW INFECTIONS? :NO IS THERE A CHANCE YOU COULD BE ? :NO ARE YOU BREAST FEEDING? :NO WHEN DID YOU LAST EAT? : 07/12/20 WHEN DID YOU LAST DRINK? : 07/13/20 0700 WHAT DID YOU LAST DRINK? : WATER NAME OF PERSON DRIVING YOU HOME? : [facility] DO YOU HAVE ANY OTHER QUESTIONS OR CONCERNS? : - CURRENT MEDICATIONS TAKING ASPIRIN 81 MG TABLET 1 TABLET ORALLY ONCE A DAY TAKING MAGNESIUM 400 MG TABLET 1 TAB ORALLY ONCE DAILY TAKING ACETAMINOPHEN 325 MG TABLET 1 TABLET NEEDED ORALLY EVERY 4 HRS TAKING MOMETASONE FUROATE 0.1 % LOTION 1 TO AFFECTED AREA EXTERNALLY TO EARS DAILY NEEDED TAKING TRAZODONE HCL 50 MG TABLET 1/2-1 TABLET AT BEDTIME ORALLY ONCE A DAY AT HS NEEDED FOR SLEEP, NOTES: NONE LATELY TAKING VALSARTAN 80 MG TABLET 1 TABLET ORALLY ONCE A DAY TAKING SPIRONOLACTONE 25 MG TABLET 1/2 TABLET ORALLY ONCE A DAY, NOTES: 07/12/20 TAKING RAPAFLO 8 MG CAPSULE 1 CAPSULE WITH A MEAL ORALLY ONCE A DAY TAKING AVODART 0.5 MG CAPSULE 1 CAPSULE ORALLY ONCE A DAY TAKING FLONASE 50 MCG/ACT SUSPENSION 2 SPRAYS IN EACH NOSTRIL NASALLY DAILY NEEDED NOT-TAKING ALPHAGAN P 0.1 % SOLUTION 1 DROP INTO BOTH EYES OPHTHALMIC TWICE A DAY NOT-TAKING VYZULTA 0.024 % SOLUTION 1 DROP INTO AFFECTED EYE IN THE EVENING OPHTHALMIC ONCE A DAY NOT-TAKING SUPER B COMPLEX NOT-TAKING SYSTANE 0.4-0.3 % SOLUTION 1 DROP INTO AFFECTED EYE NEEDED OPHTHALMIC 24 TIME(S) A DAY NOT-TAKING IBUPROFEN 200 MG TABLET 1 TABLET ORALLY DAILY NEEDED MEDICATION LIST REVIEWED AND RECONCILED WITH THE PATIENT PAST MEDICAL HISTORY ESSENTIAL (PRIMARY) HYPERTENSION HYPERCHOLESTEROLEMIA 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, UNSPECIFIED BRADYCARDIA, 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 UNSPECIFIED GLAUCOMA RESTLESS LEGS SYNDROME ESSENTIAL (PRIMARY) HYPERTENSION HYPERCHOLESTEROLEMIA OBSTRUCTIVE AND REFLUX UROPATHY, UNSPECIFIED IMPAIRED FASTING GLUCOSE BRADYCARDIA, 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 UNSPECIFIED GLAUCOMA RESTLESS LEGS SYNDROME HEMATURIA, UNSPECIFIED TYPE BENIGN PROSTATIC HYPERPLASIA WITHOUT LOWER URINARY TRACT SYMPTOMS ALLERGIES LISINOPRIL: COUGH - SIDE EFFECTS SOCIAL HISTORY GENERAL: TOBACCO USE ARE YOU A:FORMER SMOKER HOW LONG HAS IT BEEN SINCE YOU LAST SMOKED?> 10 YEARS LATEX QUESTIONNAIRE LATEX ALLERGY : HAVE YOU EVER DEVELOPED ANY TYPE OF REACTION AFTER HANDLING LATEX PRODUCTS SUCH RUBBER GLOVES, CONDOMS, DIAPHRAGMS, BALLOONS, SOCKS, OR UNDERWEAR?NO LATEX ALLERGY : HAVE YOU EVER DEVELOPED ANY TYPE OF REACTION DURING OR AFTER DENTAL APPOINTMENT, VAGINAL/RECTAL EXAMINATION, SURGICAL PROCEDURE, OR ANY OTHER EXPOSURE?NO DATE ASKED : 09/01/2019 LATEX RISK : HAVE YOU EVER HAD ANY DIFFICULTY BREATHING OR HIVES AFTER EATING OR HANDLING ANY FRUITS, OR VEGETABLES; SUCH KIWI, BANANAS, STONE FRUITS, OR CHESTNUTSNO LATEX RISK : DO YOU HAVE A PREVIOUS PERSONAL HISTORY OF MORE THAN NINE SURGERIES, SPINA BIFIDA, OR REPEATED CATHERIZATIONS? NO LATEX RISK : ARE YOU FREQUENTLY EXPOSED TO LATEX PRODUCTS IN YOUR OCCUPATION?NO BMI CARE GOAL FOLLOW-UP ABOVE NORMAL BMI FOLLOW-UPGIVING ENCOURAGEMENT TO EXERCISE ALCOHOL SCREENING DID YOU HAVE A DRINK CONTAINING ALCOHOL IN THE PAST YEAR?YES HOW MANY DRINKS DID YOU HAVE ON A TYPICAL DAY WHEN YOU WERE DRINKING IN THE PAST YEAR?1 OR 2 (0 POINTS) HOW OFTEN DID YOU HAVE A DRINK CONTAINING ALCOHOL IN THE PAST YEAR?MONTHLY OR LESS (1 POINT) POINTS1 INTERPRETATIONNEGATIVE RECREATIONAL DRUG USE DRUG USE?NO CAFFEINE CAFFEINE USE?YES HOW OFTEN AND HOW MUCH? 2 CUPS COFFEE DAILY SEXUAL HX HAD SEX IN THE LAST 12 MONTHS (VAGINAL, ORAL, OR ANAL)?NO HAVE YOU EVER HAD AN STD?NO HIV / HEP-C SCREENING HIV TEST OFFERED TO PATIENT:YES DATE OFFERED:09/01/2017 TEST ACCEPTED:NO HEP-C TEST OFFERED TO PATIENT:YES DATE OFFERED:09/01/2017 REASON:PATIENT DECLINED TEST ACCEPTED:NO REASON:PATIENT DECLINED BROCHURE PROVIDED TO PATIENTYES SIKHISM NO WORSHIP BELIEFS THAT WOULD IMPACT HEALTH CARE. LANGUAGE ITALIAN. 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 DIET: REGULAR. EXERCISE: NO REGULAR EXERCISE. MARITAL STATUS: . - HAS THE PATIENT BEEN EDUCATED REGARDING HIS/HER PLAN OF CARE?YES HAS THE PATIENT BEEN EDUCATED REGARDING PAIN, THE RISK FOR PAIN, THE IMPORTANCE OF EFFECTIVE PAIN MANAGEMENT, AND THE PAIN ASSESSMENT PROCESS?YES HOUSING: OWNS HOME. ADVANCE DIRECTIVE ADVANCE DIRECTIVE DISCUSSED WITH PATIENT:YES PT HAS ADVANCED DIRECTIVES, STATES THEY WERE SCANNED IN REVIEWED WITH PT 11/07/17 1330 LAS. REVIEW OF SYSTEMS CONSTITUTIONAL: ANY RECENT FEVER NO . CHILLS NO . WEIGHT CHANGE OF UNKNOWN REASONS NO . GASTROENTEROLOGY: NEW UNEXPLAINABLE CHANGES IN BOWEL CONTROL NO . CONSTIPATION NO . GENITOURINARY: ANY NEW CHANGE IN BLADDER CONTROL? NO . NEUROLOGY: NEW ONSET DIZZINESS OR NEUROLOGICAL CHANGES NOT MENTIONED NO . NEW NUMBNESS OR PAIN PATTERNS NOT MENTIONED AND PERTINENT TO TODAY'S VISIT NO . CARDIOLOGY: NEW CHEST PRESSURE NO REPORTS BRADYCARDIA, IN THE PROCESS OF BEING EVALUATED BY DR. BAUTISTA, HEART RATES GO INTO THE 30S . PATIENT DENIES NO . RESPIRATORY: UNEXPLAINABLE COUGH NO . NEW SHORTNESS OF BREATH NO . VITAL SIGNS WT 201.2 LBS, HT 68.5 IN, BMI 30.14 INDEX, BP 159/74 MM HG, HR 56 /MIN, RR 18 /MIN, TEMP 97.0 F, OXYGEN SAT % 93%, SAFE IN ENV? (Y/N) Y, NA INITIALS AW [id number], REVIEWED BY: EM. EXAMINATION GENERAL: THE PATIENT IS ALERT, ORIENTED TIMES THREE AND COOPERATIVE. LUNGS ARE CLEAR TO AUSCULTATION. HEART SHOWS REGULAR RHYTHM, NO MURMURS AND NO GALLOPS. HEART RATE TODAY WAS BETWEEN 46 AND 52. ASSESSMENTS INTERVERTEBRAL DISC DISORDERS WITH RADICULOPATHY, LUMBAR REGION - M51.16 (PRIMARY) TREATMENT INTERVERTEBRAL DISC DISORDERS WITH RADICULOPATHY, LUMBAR REGION CLINICAL NOTES: I DISCUSSED ALTERNATIVES WITH MR. FAN. IN VIEW OF THE INFORMATION, WE AGREED THAT THE PATIENT FINISH HIS ASSESSMENT WITH DR. BAUTISTA AND MAKE A DETERMINATION IF HE WILL GET A PACE MAKER OR NOT. THE PATIENT IS GOING TO BE REFERRED TO THE NURSE PRACTITIONER FOR MEDICATION MANAGEMENT UNTIL THE SITUATION IS CLARIFIED. BEFORE GETTING AN INJECTION HERE AT THE PAIN CENTER, WE WILL NEED A CLEARANCE FROM DR. BAUTISTA AFTER EVERYTHING IS RESOLVED WITH HIS HEART. AT THE PAIN CENTER, WE WERE GOING TO DO AN INJECTION AND THE PATIENT RECEIVED 500 ML OF LACTATED RINGERS. THE PATIENT AGREES WITH THE PLAN. I, VENANCIO PETERS, DOCUMENTED THE ABOVE INFORMATION ACTING A SCRIBE FOR DR. STUART. I HAVE REVIEWED THE ABOVE DOCUMENT, WRITTEN BY VENANCIO PETERS, PULVI MIXER OPERATOR, AND I VERIFY THAT IT IS ACCURATE. PROCEDURES PAIN NURSING RECORD LOC: 1. ALERT, ORIENTED, IMMANUELTIKA 07/13/2020 10:00:59 AM > RESP: 1. REGULAR, NO DYSPNEA, IMMANUELTIKA 07/13/2020 10:00:10 AM > COLOR: 1. PINK, IMMANUELTIKA 07/13/2020 10:00:18 AM > SKIN: 1. WARM, DRY, IMMANUELTIKA 07/13/2020 10:00:27 AM > POSITION: 5. SITTING, IMMANUELTIKA 07/13/2020 10:00:38 AM > VITALS: 159/71, 46, 16, 98%, TIKA GAMBINO 07/13/2020 09:36:29 AM > 138/65, 50, 16, 97%, TIKA GAMBINO 07/13/2020 09:45:10 AM > 157/70, 48, 16, 97%, TIKA GAMBINO 07/13/2020 10:00:42 AM > NOTES Tom GAMBINO RN COMPLETION OF PROCEDURE APPOINTMENT: DRESSING SITE NO DRESSING, IV DISCONTINUED, SITE CLEAR, CATHETER INTACT, GAIT STEADY, TEACHING COMPLETED, PATIENT ACKNOWLEDGES UNDERSTANDING YES, PROCEDURE APPOINTMENT COMPLETED AT 1005 : PT'S HR 46-52, PT REPORTS THAT HE IS FOLLOWING WITH DR BAUTISTA FOR RAPID HR, WHICH HAS BEEN DX ANXIETY WITH RAPID HR. HE HAS UNDERGONE A SLEEP STUDY AND HEART MONITOR X 30 DAYS, HE REPORTS THAT HIS HR GOES DOWN IN THE 30'S @ HS. DR STUART IS AWARE AND WE WILL EITHER DO THE PROCEDURE IN THE OR AFTER CLEARANCE FROM DR BAUTISTA, OR DO THE PROCEDURE HERE AFTER HE HAS A PACEMAKER AND CLEARANCE FROM DR BAUTISTA. IN THE MEANTIME, PT IS TO FOLLOW UP WITH ELIZABETH FOR AGGRESSIVE MEDICATION THERAPY. TIKA GAMBINO 07/13/2020 10:11:57 AM > PROCEDURE CODES FA211 ESTABILISHED PATIENT [facility] FACILITY CHARGE DISPOSITION & COMMUNICATION FOLLOW UP FOLLOW UP WITH RUBBER AND PLASTICS WORKER (REASON: MEDICATION MANAGEMENT) ELECTRONICALLY SIGNED BY MINDA STUART MD, MD ON 07/13/2020 AT 06:19 PM EDT DISCLAIMER : THIS IS A VISIT SUMMARY EXTRACTED FROM THE [facility]. IT IS NOT A COPY OF THE [employer] PROGRESS NOTE. MTDD
== END ==
LOC: M PAIN 08:30
PROVIDERS: ATTEND Anesthesiology
DX: M51.16 Intervertebral disc disorders with radiculopathy, lumbar region (principal); G89.29 Other chronic pain; R73.01 Impaired fasting glucose; G25.81 Restless legs syndrome; Z87.891 Personal history of nicotine dependence; Z88.8 Allergy status to other drugs, medicaments and biological substances; Z79.82 Long term (current) use of aspirin; Z79.899 Other long term (current) drug therapy

== ENCOUNTER → 2020-08-24 | Outpatient (REF) | payer MEDICARE ==
[~2020-08-24] MED LIST changes: -ISOVUE-M 300 61% 15ML VIAL As Ordered ONE; -LIDOCAINE 1% SDV 30ML VIAL As Ordered ONE; -methylPREDNISolone SUSP 40MG/ML 1ML VIAL (DEPO MEDROL) As Ordered ONE
[2020-08-24 13:20] LABS: HEMATOCRIT 47.9 % (42.0-52.0); HEMOGLOBIN 15.5 g/dl (13.5-17.5); MEAN CORPUSCULAR HEMOGLOBIN 30.7 pg (27.0-33.0); MEAN CORPUSCULAR HGB CONC 32.4 g/dl (32.0-36.5); MEAN CORPUSCULAR VOLUME 94.9 fl (80.0-96.0); PLATELET COUNT, AUTOMATED 172 10^3/uL (150-450); RED BLOOD COUNT 5.05 10^6/uL (4.30-6.10); WHITE BLOOD COUNT 4.1 10^3/uL (4.0-10.0)
[2020-08-24 13:48] LABS: ALBUMIN 3.8 GM/DL (3.2-5.2); ALT/SGPT 23 U/L (12-78); BILIRUBIN,TOTAL 1.1 MG/DL (0.2-1.0); BLOOD UREA NITROGEN 14 MG/DL (7-18); CALCIUM LEVEL 9.5 MG/DL (8.8-10.2); CARBON DIOXIDE LEVEL 33 MEQ/L (21-32); CHLORIDE LEVEL 104 MEQ/L (98-107); CHOLESTEROL LEVEL 231 MG/DL (<200); CHOLESTEROL RISK RATIO 2.851 (<5); CREATININE FOR GFR 0.88 MG/DL (0.70-1.30); GLOMERULAR FILTRATION RATE > 60.0 (>42); GLUCOSE, FASTING 94 MG/DL (70-100); HDL CHOLESTEROL 81 MG/DL (>40); LDL CHOLESTEROL 136 MG/DL (<100); MAGNESIUM LEVEL 2.2 MG/DL (1.8-2.4); NON-HDL-C 150 MG/DL; POTASSIUM SERUM 5.3 MEQ/L (3.5-5.1); SODIUM LEVEL 140 MEQ/L (136-145); TOTAL PROTEIN 6.3 GM/DL (6.4-8.2); TRIGLYCERIDES LEVEL 71 MG/DL (<150)
== END ==
LOC: M PLALAB 09:20
PROVIDERS: ATTEND Internal Medicine
DX: G25.81 Restless legs syndrome (principal); I10 Essential (primary) hypertension; E78.00 Pure hypercholesterolemia, unspecified

== ENCOUNTER → 2021-03-08 | Outpatient (CLI) | payer MEDICARE ==
[2021-03-08 14:07] LABS: ALBUMIN 3.7 GM/DL (3.2-5.2); ALT/SGPT 20 U/L (12-78); BILIRUBIN,DIRECT 0.3 MG/DL (0.0-0.2); BILIRUBIN,TOTAL 0.9 MG/DL (0.2-1.0); CHOLESTEROL LEVEL 160 MG/DL (<200); CHOLESTEROL RISK RATIO 2.025 (<5); HDL CHOLESTEROL 79 MG/DL (>40); LDL CHOLESTEROL 64 MG/DL (<100); NON-HDL-C 81 MG/DL; TOTAL PROTEIN 6.2 GM/DL (6.4-8.2); TRIGLYCERIDES LEVEL 83 MG/DL (<150)
[2021-03-09 13:37] LABS: BLOOD UREA NITROGEN 13 MG/DL (7-18); CALCIUM LEVEL 9.6 MG/DL (8.8-10.2); CARBON DIOXIDE LEVEL 35 MEQ/L (21-32); CHLORIDE LEVEL 104 MEQ/L (98-107); CREATININE FOR GFR 0.88 MG/DL (0.70-1.30); GLOMERULAR FILTRATION RATE > 60.0 (>42); GLUCOSE, FASTING 106 MG/DL (70-100); MAGNESIUM LEVEL 2.3 MG/DL (1.8-2.4); POTASSIUM SERUM 4.7 MEQ/L (3.5-5.1); SODIUM LEVEL 141 MEQ/L (136-145)
== END ==
LOC: M PLALAB 09:30
PROVIDERS: ATTEND Physician Assistant
DX: E78.00 Pure hypercholesterolemia, unspecified (principal)

== ENCOUNTER → 2021-08-24 | Outpatient (CLI) | payer MEDICARE ==
[2021-08-24 11:19] LABS: BASO % 0.6 % (0.0-1.0); EOS % 0.8 % (0.0-3.0); HEMATOCRIT 47.2 % (42.0-52.0); HEMOGLOBIN 15.4 g/dl (13.5-17.5); LYMPH # 1.2 10^3/uL (1.5-5.0); LYMPH % 24.5 % (24.0-44.0); MEAN CORPUSCULAR HEMOGLOBIN 30.7 pg (27.0-33.0); MEAN CORPUSCULAR HGB CONC 32.6 g/dl (32.0-36.5); MEAN CORPUSCULAR VOLUME 94.2 fl (80.0-96.0); MONO # 0.5 10^3/uL (0.0-0.8); MONO % 10.1 % (2.0-8.0); NEUTROPHILS % 63.8 % (36.0-66.0); PLATELET COUNT, AUTOMATED 157 10^3/uL (150-450); RED BLOOD COUNT 5.01 10^6/uL (4.30-6.10); WHITE BLOOD COUNT 4.7 10^3/uL (4.0-10.0)
[2021-08-24 12:17] LABS: ALBUMIN 3.8 GM/DL (3.2-5.2); ALT/SGPT 22 U/L (12-78); BILIRUBIN,TOTAL 1.1 MG/DL (0.2-1.0); BLOOD UREA NITROGEN 12 MG/DL (7-18); CALCIUM LEVEL 9.3 MG/DL (8.8-10.2); CARBON DIOXIDE LEVEL 34 MEQ/L (21-32); CHLORIDE LEVEL 104 MEQ/L (98-107); CHOLESTEROL LEVEL 163 MG/DL (<200); CHOLESTEROL RISK RATIO 1.895 (<5); CREATININE FOR GFR 0.99 MG/DL (0.70-1.30); GLOMERULAR FILTRATION RATE > 60.0 (>42); GLUCOSE, FASTING 103 MG/DL (70-100); HDL CHOLESTEROL 86 MG/DL (>40); LDL CHOLESTEROL 64 MG/DL (<100); NON-HDL-C 77 MG/DL; POTASSIUM SERUM 5.5 MEQ/L (3.5-5.1); SODIUM LEVEL 140 MEQ/L (136-145); TOTAL PROTEIN 6.3 GM/DL (6.4-8.2); TRIGLYCERIDES LEVEL 63 MG/DL (<150)
[2021-08-24 12:43] LABS: HEPATITIS C VIRUS ABY INDEX 0.1 INDEX (<0.8)
== END ==
LOC: M PLALAB 09:16
PROVIDERS: ATTEND Internal Medicine
DX: E78.00 Pure hypercholesterolemia, unspecified (principal); E73.8 Other lactose intolerance; Z12.5 Encounter for screening for malignant neoplasm of prostate; Z11.59 Encounter for screening for other viral diseases; G25.81 Restless legs syndrome; I10 Essential (primary) hypertension
CPT/HCPCS: 36415; 80053; 80061; 85025; 86803; G0103

== ENCOUNTER → 2021-09-25 | Outpatient (CLI) | payer MEDICARE ==
[2021-09-25 17:37] LABS: HEMATOCRIT 46.3 % (42.0-52.0); MEAN CORPUSCULAR HEMOGLOBIN 30.5 pg (27.0-33.0); MEAN CORPUSCULAR HGB CONC 32.4 g/dl (32.0-36.5); MEAN CORPUSCULAR VOLUME 94.1 fl (80.0-96.0); PLATELET COUNT, AUTOMATED 169 10^3/uL (150-450); RED BLOOD COUNT 4.92 10^6/uL (4.30-6.10); WHITE BLOOD COUNT 7.9 10^3/uL (4.0-10.0)
[2021-09-25 18:47] LABS: BLOOD UREA NITROGEN 14 MG/DL (7-18); CALCIUM LEVEL 9.7 MG/DL (8.8-10.2); CARBON DIOXIDE LEVEL 33 MEQ/L (21-32); CHLORIDE LEVEL 103 MEQ/L (98-107); CREATININE FOR GFR 0.99 MG/DL (0.70-1.30); GLOMERULAR FILTRATION RATE > 60.0 (>42); GLUCOSE, FASTING 85 MG/DL (70-100); MAGNESIUM LEVEL 2.2 MG/DL (1.8-2.4); POTASSIUM SERUM 6.1 MEQ/L (3.5-5.1); SODIUM LEVEL 137 MEQ/L (136-145)
== END ==
LOC: M PLALAB 15:25
PROVIDERS: ATTEND Internal Medicine
DX: I49.5 Sick sinus syndrome (principal)

== ENCOUNTER → 2021-09-26 | Outpatient (CLI) | payer MEDICARE | LOC: M LAB 14:01 | PROVIDERS: ATTEND Physician Assistant | DX: E87.5 Hyperkalemia (principal) ==

== ENCOUNTER → 2021-09-30 | Outpatient (CLI) | payer MEDICARE ==
[~2021-09-30] MED LIST changes: +ATOR1TAB19 PO; +AVOD0.5C PO; +DORZ2SOL5 OU
== END ==
LOC: M LABSMTC 09:12
PROVIDERS: ATTEND Anesthesiology
DX: Z20.828 Contact with and (suspected) exposure to other viral communicable diseases (principal); Z11.59 Encounter for screening for other viral diseases

== ENCOUNTER 2021-10-04 13:07 | Observation (INO) | payer MEDICARE ==
[2021-10-04] VITALS (11 sets, daily range): BP systolic 130–159; BP diastolic 63–76; O2SAT 93–98
[~2021-10-04] VITALS: Ht 172.7 cm; Wt 95.0 kg
[2021-10-04] MEDS ORDERED: ISOVUE-300 61% 50ML VIAL As Ordered ONE (13:37)
[2021-10-04] MEDS ORDERED: LIDOCAINE 1% SDV 30ML VIAL As Ordered ONE (13:37)
[2021-10-04] MEDS ORDERED: AMIODARONE HCL 360 MG/200 ML PREMIXED BAG (NEXTERONE) (J0282 PER 30MG) As Ordered ONE (13:37)
[2021-10-04] MEDS ORDERED: LR 1,000 ML IV SCH ×2 (13:55→16:05)
[2021-10-04] MEDS ORDERED: LIDOCAINE 2% INJ 100 MG/5 ML SYRINGE As Ordered ONE (14:04)
[2021-10-04] MEDS ORDERED: MIDAZOLAM INJ 2MG/2ML VIAL (J2250 PER 1MG) As Ordered ONE (14:05)
[2021-10-04] MEDS ORDERED: propofoL 500 MG/50 ML VIAL As Ordered ONE (14:05)
[2021-10-04] MEDS ORDERED: fentaNYL 100 MCG/2 ML INJECTION As Ordered ONE (14:05)
[2021-10-04] MEDS ORDERED: ceFAZolin SOD 2 GM in IV 1 EA IV ONE (14:15)
[2021-10-04] MEDS ORDERED: propofoL 200 MG/20 ML VIAL As Ordered ONE (15:29)
[2021-10-04] MEDS ORDERED: ONDANSETRON 4MG 2ML VIAL As Ordered ONE (15:58)
[2021-10-04] MEDS ORDERED: KETOROLAC 60MG 2ML VIAL As Ordered ONE (15:58)
[2021-10-04] MEDS ORDERED: ONDANSETRON 4MG 2ML VIAL IV PRN (16:05)
[2021-10-04] MEDS ORDERED: fentaNYL 100 MCG/2 ML INJECTION IV PRN (16:05)
[2021-10-04] MEDS ORDERED: traMADol 50 MG TAB PO PRN (16:05)
[2021-10-04] MEDS ORDERED: amLODIPine 5 MG TAB PO ONE (16:05)
[2021-10-04] MEDS: CARVedilol 6.25 MG TAB PO SCH ×2 (17:50→23:52)
[2021-10-04] MEDS ORDERED: CARVedilol 12.5 MG TAB PO SCH (18:00)
[2021-10-04] MEDS ORDERED: DUTASTERIDE 0.5 MG CAP (AVODART) PO SCH (21:00)
[2021-10-04] MEDS: ceFAZolin SOD 1 GM in D5W MINI-BAG PLUS 50 ML IV SCH (23:53)
[2021-10-05] VITALS (8 sets, daily range): BP systolic 122–147; BP diastolic 60–72; O2SAT 96–98
[2021-10-05] MEDS: CARVedilol 6.25 MG TAB PO SCH ×3 (06:32→17:16)
[2021-10-05] MEDS: ACETAMINOPHEN TAB 650MG DOSE (2X325MG) PO PRN ×3 (06:32→17:16)
[2021-10-05] MEDS: ceFAZolin SOD 1 GM in D5W MINI-BAG PLUS 50 ML IV SCH ×2 (06:32→15:17)
[2021-10-05] MEDS ORDERED: VALSARTAN 80 MG TAB (DIOVAN) PO SCH (09:00)
[2021-10-05] MEDS ORDERED: SPIRONOLACTONE 12.5MG PER 1/2 TABLET PO SCH (09:00)
[2021-10-05] MEDS ORDERED: COSOPT OCUMETER PLUS 10ML (DORZOLAMIDE/TIMOLOL) OU SCH (09:00)
[2021-10-05] MEDS ORDERED: CARV6.25 PO (17:23)
[2021-10-05] MEDS ORDERED: PREVNAR 13 VACCINE SYRINGE IM.IMMUN ONE (18:00)
[2021-10-06] MEDS ORDERED: UNRESOLVED PATIENT OWN MED ORDER XX SCH (00:01)
== END 2021-10-05 18:57 | disposition home or self-care (01) ==
LOC: M SDC 13:07 → INTOOBSV 13:08 → M PCU 13:08 → UNDOADMIN 17:00 → M PCU 17:00
PROVIDERS: ADMIT Internal Medicine Cardiovascular Disease; ATTEND Internal Medicine Cardiovascular Disease
DX: I49.5 Sick sinus syndrome (principal); I48.0 Paroxysmal atrial fibrillation; I49.1 Atrial premature depolarization; I44.0 Atrioventricular block, first degree; I11.9 Hypertensive heart disease without heart failure; I27.20 Pulmonary hypertension, unspecified; I34.9 Nonrheumatic mitral valve disorder, unspecified; G47.33 Obstructive sleep apnea (adult) (pediatric); N40.0 Benign prostatic hyperplasia without lower urinary tract symptoms; J32.9 Chronic sinusitis, unspecified; H40.9 Unspecified glaucoma; Z79.899 Other long term (current) drug therapy; Z79.01 Long term (current) use of anticoagulants
CPT/HCPCS: 33208; 71045; 71046; 76000; 90670; 93005; 96365; 96376; C1785; C1898; G0009; G0378; J0690; J1885; J2250; J2405; J3010

== ENCOUNTER → 2021-10-18 | Outpatient (CLI) | payer MEDICARE ==
[~2021-10-18] MED LIST changes: +CARV6.25 PO
[2021-10-18 13:27] LABS: HEMATOCRIT 44.5 % (42.0-52.0); HEMOGLOBIN 14.7 g/dl (13.5-17.5); MEAN CORPUSCULAR HEMOGLOBIN 30.8 pg (27.0-33.0); MEAN CORPUSCULAR VOLUME 93.3 fl (80.0-96.0); PLATELET COUNT, AUTOMATED 158 10^3/uL (150-450); RED BLOOD COUNT 4.77 10^6/uL (4.30-6.10); WHITE BLOOD COUNT 5.8 10^3/uL (4.0-10.0)
== END ==
LOC: M PLALAB 11:54
PROVIDERS: ATTEND Physician Assistant
DX: I48.0 Paroxysmal atrial fibrillation (principal); Z79.01 Long term (current) use of anticoagulants

== ENCOUNTER → 2022-04-15 | Outpatient (CLI) | payer MEDICARE ==
[2022-04-15 15:55] LABS: HEMATOCRIT 43.7 % (42.0-52.0); HEMOGLOBIN 13.9 g/dl (13.5-17.5); MEAN CORPUSCULAR HEMOGLOBIN 30.2 pg (27.0-33.0); MEAN CORPUSCULAR HGB CONC 31.8 g/dl (32.0-36.5); PLATELET COUNT, AUTOMATED 148 10^3/uL (150-450); WHITE BLOOD COUNT 5.9 10^3/uL (4.0-10.0)
[2022-04-15 16:22] LABS: MAGNESIUM LEVEL 1.9 MG/DL (1.8-2.4)
[2022-04-15 16:25] LABS: BLOOD UREA NITROGEN 12 MG/DL (9-23); CALCIUM LEVEL 9.5 MG/DL (8.3-10.6); CARBON DIOXIDE LEVEL 32 MMOL/L (20-31); CHLORIDE LEVEL 104 MMOL/L (98-107); CREATININE FOR GFR 0.85 MG/DL (0.70-1.30); GLOMERULAR FILTRATION RATE > 60.0 (>42); GLUCOSE, FASTING 84 MG/DL (74-106); POTASSIUM SERUM 4.7 MMOL/L (3.5-5.1); SODIUM LEVEL 138 MMOL/L (136-145)
== END ==
LOC: M PLALAB 09:52
PROVIDERS: ATTEND Physician Assistant
DX: I48.0 Paroxysmal atrial fibrillation (principal); Z79.01 Long term (current) use of anticoagulants

== ENCOUNTER → 2022-08-29 | Outpatient (CLI) | payer MEDICARE ==
[2022-08-29 12:24] LABS: HEMATOCRIT 44.1 % (42.0-52.0); HEMOGLOBIN 14.4 g/dl (13.5-17.5); MEAN CORPUSCULAR HEMOGLOBIN 30.6 pg (27.0-33.0); MEAN CORPUSCULAR HGB CONC 32.7 g/dl (32.0-36.5); MEAN CORPUSCULAR VOLUME 93.6 fl (80.0-96.0); PLATELET COUNT, AUTOMATED 156 10^3/uL (150-450); RED BLOOD COUNT 4.71 10^6/uL (4.30-6.10); WHITE BLOOD COUNT 5.1 10^3/uL (4.0-10.0)
[2022-08-29 12:40] LABS: HEMOGLOBIN A1c 5.7 % (4.0-6.0)
[2022-08-29 12:49] LABS: CREATININE, URINE 92.8 MG/DL; MALB URINE SIEMENS < 3.0 MG/L; MAU/CREAT RATIO 3.2 MCG/MG (0.0-30.0)
[2022-08-29 12:52] LABS: C REACTIVE PROTEIN QUANTITATIV < 0.40 MG/DL (<1.0)
[2022-08-29 12:53] LABS: ALKALINE PHOSPHATASE 84 U/L (46-116); ALT/SGPT 20 U/L (7.0-40); AST/SGOT 16 U/L (<34); BILIRUBIN,TOTAL 1.1 MG/DL (0.3-1.2); BLOOD UREA NITROGEN 14 MG/DL (9-23); CALCIUM LEVEL 8.8 MG/DL (8.3-10.6); CARBON DIOXIDE LEVEL 30 MMOL/L (20-31); CHLORIDE LEVEL 104 MMOL/L (98-107); CHOLESTEROL LEVEL 174 MG/DL (<200); CREATININE FOR GFR 0.89 MG/DL (0.70-1.30); GLOMERULAR FILTRATION RATE > 60.0 (>42); GLUCOSE, FASTING 88 MG/DL (74-106); HDL CHOLESTEROL 66.9 MG/DL (>40); LDL CHOLESTEROL 85.5 MG/DL (<100); NON-HDL-C 107.1 MG/DL; POTASSIUM SERUM 4.5 MMOL/L (3.5-5.1); SODIUM LEVEL 138 MMOL/L (136-145); THYROID STIMULATING HORMONE 1.997 uIU/ML (0.55-4.78); TOTAL 25(OH) VITAMIN D 13.5 NG/ML (20.0-100.0); TOTAL PROTEIN 6.3 G/DL (5.7-8.2); TRIGLYCERIDES LEVEL 108 MG/DL (<150)
[2022-08-29 12:54] LABS: FREE T4 0.94 NG/DL (0.89-1.76)
[2022-08-29 12:55] LABS: VITAMIN B12 LEVEL 281 PG/ML (211-911)
== END ==
LOC: M PLALAB 09:13
PROVIDERS: ATTEND Internal Medicine Hematology
DX: N40.1 Benign prostatic hyperplasia with lower urinary tract symptoms (principal); R73.01 Impaired fasting glucose; Z79.899 Other long term (current) drug therapy
CPT/HCPCS: 36415; 80053; 80061; 82043; 82306; 82607; 83036; 83525; 84439; 84443; 85027; 86140; G0103

== ENCOUNTER → 2023-02-25 | Outpatient (CLI) | payer MEDICARE ==
[2023-02-25 17:37] LABS: HEMATOCRIT 42.4 % (42.0-52.0); HEMOGLOBIN 14.1 g/dl (13.5-17.5); MEAN CORPUSCULAR HEMOGLOBIN 31.2 pg (27.0-33.0); MEAN CORPUSCULAR HGB CONC 33.3 g/dl (32.0-36.5); MEAN CORPUSCULAR VOLUME 93.8 fl (80.0-96.0); PLATELET COUNT, AUTOMATED 159 10^3/uL (150-450); RED BLOOD COUNT 4.52 10^6/uL (4.30-6.10); WHITE BLOOD COUNT 4.8 10^3/uL (4.0-10.0)
[2023-02-25 18:06] LABS: BLOOD UREA NITROGEN 10 MG/DL (9-23); CALCIUM LEVEL 9.2 MG/DL (8.3-10.6); CARBON DIOXIDE LEVEL 32 MMOL/L (20-31); CHLORIDE LEVEL 101 MMOL/L (98-107); CREATININE FOR GFR 0.81 MG/DL (0.70-1.30); GLOMERULAR FILTRATION RATE > 60.0 (>35); GLUCOSE, FASTING 80 MG/DL (74-106); POTASSIUM SERUM 4.8 MMOL/L (3.5-5.1); SODIUM LEVEL 134 MMOL/L (136-145)
== END ==
LOC: M PLALAB 13:45
PROVIDERS: ATTEND Physician Assistant
DX: I95.9 Hypotension, unspecified (principal); I48.0 Paroxysmal atrial fibrillation

== ENCOUNTER → 2023-06-16 | Outpatient (CLI) | payer MEDICARE ==
[2023-06-16 16:41] LABS: BLOOD UREA NITROGEN 11 MG/DL (9-23); CALCIUM LEVEL 9.1 MG/DL (8.3-10.6); CARBON DIOXIDE LEVEL 35 MMOL/L (20-31); CHLORIDE LEVEL 103 MMOL/L (98-107); CREATININE FOR GFR 0.83 MG/DL (0.70-1.30); GLOMERULAR FILTRATION RATE > 60.0 (>35); GLUCOSE, FASTING 83 MG/DL (74-106); MAGNESIUM LEVEL 1.8 MG/DL (1.8-2.4); POTASSIUM SERUM 4.6 MMOL/L (3.5-5.1); SODIUM LEVEL 137 MMOL/L (136-145)
== END ==
LOC: M LAB 15:50
PROVIDERS: ATTEND Physician Assistant
DX: I95.9 Hypotension, unspecified (principal); I48.0 Paroxysmal atrial fibrillation

== ENCOUNTER → 2023-09-01 | Outpatient (CLI) | payer MEDICARE ==
[~2023-09-01] MED LIST changes: -SILO8CAP PO; +SILO8CAP3 PO
[2023-09-01 13:22] LABS: BASO % 0.4 % (0.0-1.0); EOS # 0.1 10^3/uL (0.0-0.5); EOS % 1.3 % (0.0-3.0); HEMATOCRIT 44.9 % (42.0-52.0); LYMPH # 1.2 10^3/uL (1.5-5.0); LYMPH % 26.6 % (24.0-44.0); MEAN CORPUSCULAR HEMOGLOBIN 31.4 pg (27.0-33.0); MEAN CORPUSCULAR HGB CONC 33.4 g/dl (32.0-36.5); MEAN CORPUSCULAR VOLUME 93.9 fl (80.0-96.0); MONO # 0.5 10^3/uL (0.0-0.8); MONO % 10.5 % (2.0-8.0); NEUTROPHILS # 2.8 10^3/uL (1.5-8.5); NEUTROPHILS % 61.2 % (36.0-66.0); PLATELET COUNT, AUTOMATED 150 10^3/uL (150-450); RED BLOOD COUNT 4.78 10^6/uL (4.30-6.10); WHITE BLOOD COUNT 4.6 10^3/uL (4.0-10.0)
[2023-09-01 13:40] LABS: HEMOGLOBIN A1c 5.4 % (4.0-6.0)
[2023-09-01 13:46] LABS: CREATININE, URINE 69.4 MG/DL; MALB URINE SIEMENS < 3.0 MG/L; MAU/CREAT RATIO 4.3 MCG/MG (0.0-30.0); PSA SCREENING 1.04 NG/ML (< 4.00)
[2023-09-01 13:48] LABS: C REACTIVE PROTEIN QUANTITATIV < 0.40 MG/DL (<1.0)
[2023-09-01 13:50] LABS: ALBUMIN 3.5 G/DL (3.2-5.2); ALKALINE PHOSPHATASE 83 U/L (46-116); ALT/SGPT 19 U/L (7.0-40); AST/SGOT 12 U/L (<34); BILIRUBIN,TOTAL 0.7 MG/DL (0.3-1.2); BLOOD UREA NITROGEN 13 MG/DL (9-23); CALCIUM LEVEL 9.3 MG/DL (8.3-10.6); CARBON DIOXIDE LEVEL 34 MMOL/L (20-31); CHLORIDE LEVEL 103 MMOL/L (98-107); CHOLESTEROL LEVEL 174 MG/DL (<200); CHOLESTEROL RISK RATIO 2.45 (<5); CREATININE FOR GFR 0.83 MG/DL (0.70-1.30); GLOMERULAR FILTRATION RATE > 60.0 (>35); GLUCOSE, FASTING 83 MG/DL (74-106); LDL CHOLESTEROL 87.2 MG/DL (<100); POTASSIUM SERUM 4.6 MMOL/L (3.5-5.1); SODIUM LEVEL 138 MMOL/L (136-145); TOTAL PROTEIN 5.9 G/DL (5.7-8.2); TRIGLYCERIDES LEVEL 79 MG/DL (<150)
[2023-09-01 13:51] LABS: FREE T4 1.08 NG/DL (0.89-1.76); THYROID STIMULATING HORMONE 1.883 uIU/ML (0.55-4.78); TOTAL 25(OH) VITAMIN D 60.1 NG/ML (20.0-100.0); VITAMIN B12 LEVEL 250 PG/ML (211-911)
== END ==
LOC: M PLALAB 10:06
PROVIDERS: ATTEND Internal Medicine Hematology
DX: R73.01 Impaired fasting glucose (principal); Z12.5 Encounter for screening for malignant neoplasm of prostate; Z79.899 Other long term (current) drug therapy
CPT/HCPCS: 36415; 80053; 80061; 82043; 82306; 82607; 83036; 83525; 84439; 84443; 85025; 86140; G0103

== ENCOUNTER → 2024-05-26 | Outpatient (CLI) | payer MEDICARE ==
[2024-05-26 15:07] LABS: HEMATOCRIT 45.1 % (42.0-52.0); HEMOGLOBIN 14.7 g/dl (13.5-17.5); MEAN CORPUSCULAR HEMOGLOBIN 30.2 pg (27.0-33.0); MEAN CORPUSCULAR HGB CONC 32.6 g/dl (32.0-36.5); MEAN CORPUSCULAR VOLUME 92.8 fl (80.0-96.0); PLATELET COUNT, AUTOMATED 163 10^3/uL (150-450); RED BLOOD COUNT 4.86 10^6/uL (4.30-6.10); WHITE BLOOD COUNT 5.6 10^3/uL (4.0-10.0)
[2024-05-26 15:34] LABS: BLOOD UREA NITROGEN 13 MG/DL (9-23); CALCIUM LEVEL 9.3 MG/DL (8.3-10.6); CARBON DIOXIDE LEVEL 33 MMOL/L (20-31); CHLORIDE LEVEL 101 MMOL/L (98-107); CREATININE FOR GFR 0.82 MG/DL (0.70-1.30); GLOMERULAR FILTRATION RATE > 60.0 (>35); GLUCOSE, FASTING 91 MG/DL (74-106); POTASSIUM SERUM 4.9 MMOL/L (3.5-5.1); SODIUM LEVEL 140 MMOL/L (136-145)
== END ==
LOC: M PLALAB 13:32
PROVIDERS: ATTEND Physician Assistant
DX: I95.9 Hypotension, unspecified (principal); I48.0 Paroxysmal atrial fibrillation; I11.9 Hypertensive heart disease without heart failure

== ENCOUNTER → 2024-11-24 | Outpatient (CLI) | payer MEDICARE ==
[~2024-11-24] MED LIST changes: -BRIM1OPD OP; +BRIM5DRO25 OP
[2024-11-24 12:48] LABS: PLATELET COUNT, AUTOMATED 171 10^3/uL (150-450)
[2024-11-24 13:05] LABS: ALT/SGPT 21.0 U/L (7.0-40); AST/SGOT 18.0 U/L (<34); CALCIUM LEVEL 9.9 MG/DL (8.3-10.6); CARBON DIOXIDE LEVEL 35.0 MMOL/L (20-31); CHLORIDE LEVEL 101.0 MMOL/L (98-107); CHOLESTEROL LEVEL 183.0 MG/DL (<200); CHOLESTEROL RISK RATIO 2.57 (<5); CREATININE FOR GFR 0.91 MG/DL (0.70-1.30); GLOMERULAR FILTRATION RATE 84.2 (>35); LDL CHOLESTEROL 92.8 MG/DL (<100); MAGNESIUM LEVEL 2.0 MG/DL (1.8-2.4); NON-HDL-C 112.0 MG/DL; POTASSIUM SERUM 5.5 MMOL/L (3.5-5.1); SODIUM LEVEL 144.0 MMOL/L (136-145); TRIGLYCERIDES LEVEL 96.0 MG/DL (<150)
== END ==
LOC: M PLALAB 08:31
PROVIDERS: ATTEND Physician Assistant
DX: I48.0 Paroxysmal atrial fibrillation (principal); E78.00 Pure hypercholesterolemia, unspecified; I11.9 Hypertensive heart disease without heart failure

== ENCOUNTER → 2024-11-29 | Outpatient (CLI) | payer MEDICARE | LOC: M PLALAB 10:08 | PROVIDERS: ATTEND Physician Assistant | DX: E87.5 Hyperkalemia (principal) ==

== ENCOUNTER → 2025-03-01 | Outpatient (CLI) | payer MEDICARE ==
[2025-03-01 16:32] LABS: CALCIUM LEVEL 9.0 MG/DL (8.3-10.6); CARBON DIOXIDE LEVEL 33.0 MMOL/L (20-31); CHLORIDE LEVEL 99.0 MMOL/L (98-107); CREATININE FOR GFR 0.85 MG/DL (0.70-1.30); GLOMERULAR FILTRATION RATE 86.8 (>35); POTASSIUM SERUM 4.6 MMOL/L (3.5-5.1); SODIUM LEVEL 137.0 MMOL/L (136-145)
== END ==
LOC: M PLALAB 12:37
PROVIDERS: ATTEND Physician Assistant
DX: I11.9 Hypertensive heart disease without heart failure (principal)